=== PATIENT | female | born 1995 | race Caucasian/White ===

== ENCOUNTER → 2016-04-16 07:54 | Outpatient (CLI) | payer MEDICAID ==
[2016-01-02 04:43] VITALS: BMI 32.1
[~2016-04-16 07:54] MED LIST: HYDROCODON-ACE1 EAC7 PO; IBUPROFEN600 MG PO; PERCOCET 5-3251 TAB PO; PRENATAL COMPLE1 TAB PO; ZOLOFT50 MG PO
== END | disposition home or self-care (01) ==
LOC: D.US 07:54
DX: R10.11 Right upper quadrant pain (principal); K90.49 Malabsorption due to intolerance, not elsewhere classified

== ENCOUNTER 2016-05-06 07:11 | Day surgery (SDC) | payer MEDICAID ==
[2016-05-03 13:08] LABS: HEMATOCRIT 39.2 % (36.0-48.0); HEMOGLOBIN 13.3 g/dL (12-16); MCH 29.3 pg (26.0-34.0); MCHC 33.9 g/dL (31.0-37.0); MCV 86.3 fL (80.0-100.0); MEAN PLATELET VOLUME 12.3 fL (7.4-10.4); RBC 4.54 10x6/uL (4.00-5.40); RDW 12.5 % (11.5-14.5); WBC 5.1 10x3/uL (4.8-10.8)
[~2016-05-06] VITALS: Ht 172.7 cm; Wt 83.9 kg
[~2016-05-06 07:11] MED LIST changes: -HYDROCODON-ACE1 EAC7 PO
[2016-05-06 08:42] VITALS: BP 122/72; Ht 172.7 cm; Wt 83.9 kg
[2016-05-06 09:02] LABS: HCG URINE NEGATIVE (NEGATIVE)
--- NOTE | 2016-05-06 11:01 | NUR ---
CLIFFORD SN RELIEVED EWELINA FOR LUNCH AT 1100
--- NOTE | 2016-05-06 11:09 | NUR ---
JAQUI ST OUT AT 0098
[2016-05-06] MEDS ORDERED: HYDROCODON-ACE1 EAC7 PO (11:13)
--- NOTE | 2016-05-06 15:13 | NUR ---
1300--PT VOIDS, IV DC'D. DEANN RN 1320--DISCHARGE INSTRUCTIONS GIVEN, PT VERBALIZES UNDERSTANDING. PT OFF UNIT VIA WC. DEANN RICHARDSON
--- NOTE | 2016-05-06 22:48 | OP ---
PATIENT NAME: OVIDIO PICKERING MEDICAL RECORD: [id number] :89 LOCATION:[facility] ADMISSION DATE: SURGEON: WYATT CAZARES MD DATE OF OPERATION: 05/06/2016 SURGEON: Wyatt Cazarse MD. PREOPERATIVE DIAGNOSIS: 1. Symptomatic cholelithiasis. 2. Right upper quadrant pain. POSTOPERATIVE DIAGNOSES: 1. Symptomatic cholelithiasis. 2. Right upper quadrant pain. PROCEDURE PERFORMED: Laparoscopic cholecystectomy. ESTIMATED BLOOD LOSS: 20 cc. ANESTHESIA: General. COMPLICATIONS: None. SPECIMENS: Gallbladder. Case is clean contaminated. OPERATIVE COURSE: After consent was obtained, the patient was taken to the operating room and placed in the supine position on the operating table. Next, general anesthesia was given via endotracheal intubation after a timeout was performed that confirmed the correct patient and procedure. Thereafter, the abdomen was prepped and draped in typical sterile fashion. Local anesthetic was injected just above the umbilicus. A stab incision was made with an 11-blade scalpel. Using a 5-mm bladeless optical trocar, the abdomen was entered under direct laparoscopic vision. Adequate pneumoperitoneum was achieved. The abdominal cavity was inspected. No evidence of bowel injury. No evidence of bleeding. The patient was then placed in the steep reverse Trendelenburg position. All remaining trocars were then placed after the administration of local anesthetic, two 5-mm trocars in the right upper quadrant and 11-mm trocar in the subxiphoid position. The fundus of the gallbladder was grasped and retracted cephalad. The infundibulum was grasped and retracted laterally. The peritoneum was incised using electrocautery. Blunt dissection was performed with a [place] dissector until the critical view was obtained, cystic duct lateral, cystic artery medial. There was a posterior branch of the cystic artery that was also dissected. The liver was visible in the window. At this time, 3 clips were placed in the proximal cystic duct, 1 clip distal and 2 clips were placed in the proximal cystic artery. The duct and artery were then transected with laparoscopic Metzenbaum scissors. The remaining portion of the gallbladder was dissected off the liver bed using electrocautery. Once complete, it was grasped with the tenaculum and removed through the 11-mm trocar and sent for permanent pathology. Next, the surgical field was copiously irrigated and suctioned. Careful attention was paid to hemostasis, which was obtained in the liver bed using electrocautery. The operative site inspected. There were [address] in the cystic duct. There were [address] in the cystic artery. The abdominal cavity was inspected. There was no evidence OPERATIVE REPORT [id number] OVIDIO PICKERING of bowel injury. No evidence of bleeding, no evidence of bile leak. At this time, all remaining instruments were removed. The abdomen was desufflated. Trocars were removed. Skin was closed with 4-0 Monocryl, Mastisol and Steri-Strips. At the end of the case, all needle and instrument counts were correct. No complications occurred. The patient was extubated and transferred to the PACU in stable condition. TRANSINT:[id number] Voice Confirmation ID: [id number] DOCUMENT ID: [id number] WYATT CAZARES MD at 2248 CC: [id number] DICTATION DATE: 05/06/161116 [facility]: 05/06/16 [address] [facility] 05/06/16 [facility] [address] [place] [address]
== END 2016-05-06 13:20 | disposition home or self-care (01) ==
LOC: D.PAN 07:11 → D.OPS 09:30 → D.PAN 13:20
PROVIDERS: Anesthesiology; Surgery
DX: K80.10 Calculus of gallbladder with chronic cholecystitis without obstruction (principal)

== ENCOUNTER 2016-11-25 07:02 | Emergency (ER) | payer MEDICAID ==
[2016-05-06 08:42] VITALS: BMI 28.1
[~2016-11-25 07:02] MED LIST changes: +HYDROCODON-ACE1 EAC7 PO
[2016-11-25 08:54] LABS: BASOPHILS 0.2 % (0-2); EOSINOPHILS 0.5 % (0-7); HEMATOCRIT 37.2 % (36.0-48.0); HEMOGLOBIN 12.8 g/dL (12-16); IMMATURE GRANULOCYTES 0.3 % (0-5); LYMPHOCYTES 17.4 % (15-50); MCH 30.3 pg (26.0-34.0); MCHC 34.4 g/dL (31.0-37.0); MCV 87.9 fL (80.0-100.0); MEAN PLATELET VOLUME 10.8 fL (7.4-10.4); NEUTROPHILS 72.6 % (40-80); PLATELET COUNT 180 10x3/uL (130-400); RBC 4.23 10x6/uL (4.00-5.40); WBC 6.5 10x3/uL (4.8-10.8)
[2016-11-25 09:05] LABS: AMYLASE - SERUM 61 U/L (25-115); LIPASE 251 U/L (73-393)
== END 2016-11-25 10:03 | disposition home or self-care (01) ==
LOC: D.ER 07:02
PROVIDERS: Emergency Medicine
DX: R10.9 Unspecified abdominal pain (principal)

== ENCOUNTER → 2017-11-06 16:40 | Outpatient (CLI) | payer MEDICAID ==
[2016-05-06 08:42] VITALS: BMI 28.1
[2017-11-06 18:59] LABS: APPEARANCE CLEAR (CLEAR); BILIRUBIN NEGATIVE (NEGATIVE); COLOR YELLOW (YELLOW); GLUCOSE NEGATIVE (NEGATIVE); KETONE NEGATIVE (NEGATIVE); NITRITE NEGATIVE (NEGATIVE); PROTEIN TRACE mg/dL (NEGATIVE); SPECIFIC GRAVITY 1.015 (1.005-1.020); UROBILINOGEN NORMAL (NORMAL)
[2017-11-06 19:01] LABS: BACTERIA FEW /hpf (NONE SEEN); EPITHELIAL CELLS 0-5 /hpf (0-5); WHITE CELLS - URINE OCC /hpf (0-5)
== END | disposition home or self-care (01) ==
LOC: D.LDO 16:40
PROVIDERS: Obstetrics & Gynecology
DX: O26.893 Other specified pregnancy related conditions, third trimester (principal); Z3A.37 37 weeks gestation of pregnancy; R10.9 Unspecified abdominal pain; R19.7 Diarrhea, unspecified

== ENCOUNTER → 2017-11-10 14:52 | Outpatient (CLI) | payer MEDICAID ==
[2016-05-06 08:42] VITALS: BMI 28.1
== END | disposition home or self-care (01) ==
LOC: D.LDO 14:52
DX: O36.8130 Decreased fetal movements, third trimester, not applicable or unspecified (principal); Z3A.37 37 weeks gestation of pregnancy

== ENCOUNTER → 2017-11-13 13:53 | Outpatient (CLI) | payer MEDICAID ==
[2016-05-06 08:42] VITALS: BMI 28.1
== END | disposition home or self-care (01) ==
LOC: D.LDO 13:53
DX: O36.8130 Decreased fetal movements, third trimester, not applicable or unspecified (principal); Z3A.38 38 weeks gestation of pregnancy

== ENCOUNTER 2017-11-18 10:16 | Inpatient (IN) | payer MEDICAID ==
[~2017-11-18] VITALS: Ht 172.7 cm; Wt 99.8 kg
[2017-11-18] VITALS (14 sets, daily range): BP systolic 97–121; BP diastolic 55–88; Ht 172.7 cm; Wt 99.8 kg
[2017-11-18] MEDS ORDERED: ZOLOFT50 MG PO (10:42)
[2017-11-18] MEDS ORDERED: OMEPRAZOLE CAP 20M (10:43)
[2017-11-18] MEDS ORDERED: VISTARIL50 MG PO (10:43)
[2017-11-18 11:22] LABS: HEMATOCRIT 34.9 % (36.0-48.0); MCH 30.6 pg (26.0-34.0); MCHC 34.4 g/dL (31.0-37.0); RBC 3.92 10x6/uL (4.00-5.40); WBC 6.5 10x3/uL (4.8-10.8)
[2017-11-19 03:09] VITALS: BP 105/58
[2017-11-19 07:30] VITALS: BP 93/52
[2017-11-19 07:42] LABS: HEMATOCRIT 34.1 % (36.0-48.0); HEMOGLOBIN 11.6 g/dL (12-16); MCH 30.1 pg (26.0-34.0); MCV 88.6 fL (80.0-100.0); RBC 3.85 10x6/uL (4.00-5.40); RDW 12.8 % (11.5-14.5)
[2017-11-19 09:00] VITALS: BP 102/56
[2017-11-19 17:13] VITALS: BP 109/53
[2017-11-19 19:12] VITALS: BP 112/56
[2017-11-20 01:11] VITALS: BP 100/56
[2017-11-20 04:25] VITALS: BP 95/59
[2017-11-20 07:59] LABS: RAPID PLASMA REAGIN Non Reactive (Non Reactive)
[2017-11-20 08:25] VITALS: BP 121/69
== END 2017-11-20 11:30 | disposition home or self-care (01) | DRG 766 ==
LOC: D.LD 10:16
PROVIDERS: Obstetrics & Gynecology
PROC: 10D00Z1 Extraction of Products of Conception, Low, Open Approach (ICD-10-PCS; principal; 2017-11-18 12:30)
PROC: 0UB70ZZ Excision of Bilateral Fallopian Tubes, Open Approach (ICD-10-PCS; 2017-11-18 12:30)
DX: O34.211 Maternal care for low transverse scar from previous cesarean delivery (principal); Z30.2 Encounter for sterilization; Z3A.38 38 weeks gestation of pregnancy; Z37.0 Single live birth; Z30.09 Encounter for other general counseling and advice on contraception

== ENCOUNTER 2019-10-19 11:38 | Inpatient (IN) | payer MEDICAID ==
[~2019-10-19] VITALS: Ht 172.7 cm; Wt 88.2 kg
[~2019-10-19 11:38] MED LIST changes: +OMEPRAZOLE CAP 20M; +VISTARIL50 MG PO
[2019-10-19] MEDS ORDERED: PROZAC40 MG (11:48)
[2019-10-19 12:34] LABS: BASOPHILS 0.1 % (0-2); EOSINOPHILS 0.9 % (0-7); HEMATOCRIT 39.3 % (36.0-48.0); HEMOGLOBIN 13.2 g/dL (12-16); IMMATURE GRANULOCYTES 0.1 % (0-5); LYMPHOCYTES 5.2 % (15-50); MCH 30.6 pg (26.0-34.0); MCHC 33.6 g/dL (31.0-37.0); MEAN PLATELET VOLUME 10.9 fL (7.4-10.4); MONOCYTES 7.6 % (2-11); NEUTROPHILS 86.1 % (40-80); RBC 4.32 10x6/uL (4.00-5.40); RDW 11.8 % (11.5-14.5); WBC 9.2 10x3/uL (4.8-10.8)
[2019-10-19 12:38] LABS: PLATELET COUNT 177 10x3/uL (130-400)
[2019-10-19 12:42] LABS: CALC OSMOLALITY 269 mosm/kg (275-300); CALCIUM 8.2 mg/dL (8.5-10.1); CARBON DIOXIDE 25.8 mmol/L (21.0-32.0); CHLORIDE - SERUM 103 mmol/L (98-107); CREATININE - SERUM 0.7 mg/dL (0.6-1.3); GLUCOSE 113 mg/dL (74-106); POTASSIUM - SERUM 3.6 mmol/L (3.5-5.1); SODIUM 135 mmol/L (136-145); UREA NITROGEN 10 mg/dL (7-18); eGFR NON AFRICAN AMERICAN > 90 mL/min (90-120)
[2019-10-19 12:49] LABS: APTT 26.9 SECONDS (22.8-39.4); INR 1.01 (0.85-1.17); PROTIME 13.2 SECONDS (11.6-15.0)
[2019-10-19 12:50] LABS: D-DIMER-QUANTITATIVE 0.39 ug/mLFEU (0.20-0.54)
[2019-10-19 12:58] LABS: ALKALINE PHOSPHATASE 75 U/L (30-120); ALT (SGPT) 18 U/L (10-68); BILIRUBIN - TOTAL 0.57 mg/dL (0.2-1.3); CKMB 0.3 U/L (0.0-3.6); CREATINE KINASE 45 UL (21-215); PRO BNP 39 pg/mL (0-125); PROTEIN - SERUM 7.4 g/dL (6.4-8.2); TROPONIN-I < 0.017 ng/mL (0.000-0.060)
[2019-10-19 15:00] VITALS: BP 104/58
--- NOTE | 2019-10-19 15:00 | NUR ---
ASSUMED CARE OF PT AT HTIS TIME.
--- NOTE | 2019-10-19 17:33 | NUR ---
RECEIVED REPORT FROM GEOFF IN ED. PATIENT TO UNIT SOON.
[2019-10-19] MEDS ORDERED: TRAZODONE HCL150 MG PO (18:22)
--- NOTE | 2019-10-19 19:10 | NUR ---
PT DENIES NEEDS BED LOW AND LOCKED CALL LIGHT IS WITH PT PT TESTED NEG FOR COVID BUT I AM CONTINUING TO USE PPE AT THIS TIME THERE IS NO OTHER EXPLANATION FOR HER RESP DISTRESS
[2019-10-20 06:12] VITALS: Ht 172.7 cm; Wt 88.2 kg
[2019-10-20 06:16] LABS: BASOPHILS 0 % (0-2); EOSINOPHILS 1.7 % (0-7); HEMATOCRIT 36.1 % (36.0-48.0); HEMOGLOBIN 11.8 g/dL (12-16); IMMATURE GRANULOCYTES 0.3 % (0-5); LYMPHOCYTES 9.1 % (15-50); MCHC 32.7 g/dL (31.0-37.0); MCV 91.9 fL (80.0-100.0); MEAN PLATELET VOLUME 11.5 fL (7.4-10.4); MONOCYTES 7.5 % (2-11); NEUTROPHILS 81.4 % (40-80); PLATELET COUNT 180 10x3/uL (130-400); RBC 3.93 10x6/uL (4.00-5.40); WBC 7.6 10x3/uL (4.8-10.8)
[2019-10-20 07:09] LABS: CALC OSMOLALITY 279 mosm/kg (275-300); CALCIUM 7.6 mg/dL (8.5-10.1); CHLORIDE - SERUM 110 mmol/L (98-107); CREATININE - SERUM 0.6 mg/dL (0.6-1.3); GLUCOSE 127 mg/dL (74-106); POTASSIUM - SERUM 3.8 mmol/L (3.5-5.1); SODIUM 140 mmol/L (136-145); UREA NITROGEN 9 mg/dL (7-18); eGFR NON AFRICAN AMERICAN > 90 mL/min (90-120)
[2019-10-20 07:59] VITALS: BP 112/62
--- NOTE | 2019-10-20 08:06 | NUR ---
O2 SAT 100% 7L SIMPLE MASK. PT WEANED TO 4L ON SIMPLE MASK AND O2 SAT 98%. CHANGED O2 TO HIGH FLOW NC ON 4L AND O2 SAT STAYING 96%-98%. PT ALERT AND ORIENTED. COVID RETEST SWAB DONE. PT TOLERATED WELL. RIGHT FA 22G IV INFUSING NS AT 125ML/HR. PT UB ADLIB. BED LOW. CL IN REACH. WILL CONTINUE WITH POC.
--- NOTE | 2019-10-20 08:11 | HP ---
PATIENT: OVIDIO MCCALL MEDICAL RECORD: [id number] ACCOUNT: [id number] LOCATION:[address] : [birth year] ADMISSION DATE: 10/19/19 PCP: MO REAGAN MD HISTORY AND PHYSICAL EXAMINATION REASON FOR ADMISSION: Shortness of breath and nausea. HISTORY OF PRESENT ILLNESS: The patient is a 23-year-old 2 female. No previous respiratory illness. She states that she felt well until yesterday. She felt horrible, felt achy, and developed nausea. She vomited once yesterday and again today. She notes that she has felt like there is pressure in her chest. She was not breathing well. She had no sputum production or fever. She had no Covid exposure. The patient came to the ED and apparently oxygen saturations were 90% on room air. She was placed on 4 liters to correct to 95%. She is mildly tachycardic as well as mildly hypotensive on admission. She denies hemoptysis. Denies leg swelling or edema. No past history of family history of venous clots or coagulopathy. Emergency room physician checked her for flu and strep, which were negative. Covid nasal swab was drawn and resulted after she was admitted. It is negative. She still feels like she has difficulty breathing and is nauseated. PAST MEDICAL HISTORY: Chronic depression, severe with suicidal thoughts, but no attempts. Insomnia and history of hyperemesis gravidarum. PAST SURGICAL HISTORY: She has had a cholecystectomy, bilateral salpingectomy for sterilization and times 2. FAMILY HISTORY: Mother with hypertension, obesity, and depression. SOCIAL HISTORY: He is , has 2 sons living at home and marriage is good. She does not use alcohol or smoke cigarettes or marijuana. 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 REVIEW OF SYSTEMS: CONSTITUTIONAL: Fatigued and nauseated for the last 24 hours with sensation of shortness of breath. HEENT: No recent visual change, sinus congestion, sore throat, or hearing difficulty. RESPIRATORY: Shortness of breath at rest and exertion, felt like something pressing on her chest. She has had no cough, sputum production, or hemoptysis. CARDIAC: No exertional chest pain. GASTROINTESTINAL: Nausea with vomiting twice. No change in stools or blood per rectum. She had hyperemesis gravidarum when , but no recent GI symptoms. ENDOCRINE: Denies polyuria, polydipsia, heat, or cold intolerance. NEUROLOGIC: No history of stroke, TIA, vascular headaches, or seizures. PSYCHIATRIC: Admits to chronic depressed mood better on high dose Prozac. INTEGUMENT: No rash or itching. MUSCULOSKELETAL: No arthralgias. GYNECOLOGICAL: 2. Normal menstrual periods, but it status post-salpingectomy bilaterally electively. PHYSICAL EXAMINATION: VITAL SIGNS: Temperature 97.5, pulse 106, O2 sat is 95% on 4 liters, was 90% on room air, blood pressure 129/75. HISTORY AND PHYSICAL [id number] CALOVIDIOChrissy FARNSWORTH GENERAL: The patient is alert and oriented, in no acute distress. HEENT: Her eyes are clear. Oropharynx unremarkable. NECK: Supple. CHEST: No wheeze or rales. HEART: Regular rate and rhythm without murmur. BREASTS: Symmetrical. ABDOMEN: Soft, nontender. EXTREMITIES: No CC and E. NEUROLOGICAL: Grossly intact. Gait not tested. Motor and sensory intact. PSYCHIATRIC: Admits to stable depression, nonsuicidal. LABORATORY DATA: Shows white count of 9200, H and H of 13 and 39. Slightly left shift with neutrophils of 98.6. Chemistry: Sodium 135 and potassium is normal. Cardiac enzymes are negative. Glucose is 113 nonfasting. Lactic acid is 0.8. C-reactive protein is 4. ProBNP is 39. ABG on room air showed a pH of 7.4, pO2 of 68, pCO2 of 35, and sat 94%. Flu A and B are negative. SARS-CoV-2 is negative. Group A strep is negative. HOME MEDICATIONS: Prozac 60 mg a day and trazodone 100 mg at bedtime. ALLERGIES: None. ASSESSMENT: 1. Shortness of breath with hypoxemia, etiology unknown. She denies fever to me, but generalized aches have been noted. No loss of sense of taste or smell. 2. Negative Covid 19. 3. History of depression. PLAN: Review EKG done in the ED. We will check a D-dimer. If elevated, check pulmonary CTA. Etiology of her hypoxemia currently is unknown. She again denies fever or productive cough. Repeat x-ray in the morning if CTA not performed. The ED has consulted pulmonary due to possible Covid 19, which is currently negative. TRANSINT:[id number] Voice Confirmation ID: [id number] DOCUMENT ID: [id number] MO REAGAN MD at 0811 CC: [id number] DICTATION DATE: 10/19/191805 RESEARCH PROFESSOR OF BIOSTATISTICS: 10/19/19 2253 ADM IN [place] [id number] [place] [address]
--- NOTE | 2019-10-20 11:00 | NUR ---
PT NOW ON 2L HIGH FLOW NC PER R.T.
--- NOTE | 2019-10-20 11:38 | NUR ---
COVID TEST NEGATIVE.
--- NOTE | 2019-10-20 15:02 | NUR ---
I have reviewed this patient and I concur with the Shift Assessment completed by the Licensed Practical Nurse today this shift.
--- NOTE | 2019-10-20 16:26 | NUR ---
DR. REAGAN CALLED TO CHECK ON PT. I STATED TO HIM PT IS ON ROOM AIR AND COVID TEST IS NEGATIVE AND THAT PT IS STILL C/O OF NAUSEA AND IS RECEIVING ZOFRAN IV. I ALSO STATED TO HIM PT STATES SHE WANTS TO BE DISCHARGED BUT SHE IS NOT FEELING BETTER. DR. REAGAN STATES TO IF PT IS RECEVING ZOFRAN SHE CAN NOT GO HOME. HE THEN ASKED IF DR. HAWKINS HAS SEEN PT AND IF ECHO HAS RESULTED. I STATED TO HIM DR. SCHAEFFER CAME THROUGH HERE BUT I DID NOT SPEAK WITH HIM AND HE HAS NO PUT IN A NOTE YET AND THE ECHO RESULTS ARE NOT IN THE COMPUTER YET. HE VERBALIZED UNDERSTANDING AND STATES PT WILL NOT GO HOME TODAY. I VERBLIZED UNDERSTANDING.
[2019-10-20 17:10] VITALS: BP 103/61
--- NOTE | 2019-10-20 19:00 | NUR ---
REPORT RECEIVED, WILL CONTINUE POC. PATIENT IS AAOX4, LYING ON LEFT SIDE. NO S/S OF DISTRESS OBSERVED, RR EVEN AND UNLABORED ON ROOM AIR. PATIENT DENIES NEEDS AT THIS TIME. CL IN REACH, BED LOCKED AND LOWERED. SIGNIFICANT OTHER AT BEDSIDE. WILL CTM.
--- NOTE | 2019-10-20 19:30 | NUR ---
DR. SCHAEFFER AT BEDSIDE.
[2019-10-20 19:37] VITALS: BP 115/75
[2019-10-21 04:00] VITALS: BP 100/60
[2019-10-21 07:08] LABS: BASOPHILS 0 % (0-2); EOSINOPHILS 1.5 % (0-7); HEMATOCRIT 34.4 % (36.0-48.0); HEMOGLOBIN 11.2 g/dL (12-16); IMMATURE GRANULOCYTES 0.2 % (0-5); LYMPHOCYTES 16.5 % (15-50); MCHC 32.6 g/dL (31.0-37.0); MCV 92.2 fL (80.0-100.0); MEAN PLATELET VOLUME 10.9 fL (7.4-10.4); MONOCYTES 11.3 % (2-11); NEUTROPHILS 70.5 % (40-80); RBC 3.73 10x6/uL (4.00-5.40); RDW 12.2 % (11.5-14.5); WBC 5.8 10x3/uL (4.8-10.8)
[2019-10-21 07:12] LABS: CALC OSMOLALITY 282 mosm/kg (275-300); CALCIUM 7.5 mg/dL (8.5-10.1); CARBON DIOXIDE 26.6 mmol/L (21.0-32.0); CHLORIDE - SERUM 110 mmol/L (98-107); CREATININE - SERUM 0.7 mg/dL (0.6-1.3); GLUCOSE 100 mg/dL (74-106); POTASSIUM - SERUM 3.5 mmol/L (3.5-5.1); SODIUM 143 mmol/L (136-145); UREA NITROGEN 7 mg/dL (7-18); eGFR NON AFRICAN AMERICAN > 90 mL/min (90-120)
[2019-10-21 07:15] LABS: PLATELET COUNT 143 10x3/uL (130-400)
[2019-10-21 08:10] VITALS: BP 100/50
[2019-10-21 12:00] VITALS: BP 94/54
[2019-10-21] MEDS ORDERED: ZOFRAN4 MG PO (12:47)
[2019-10-21] MEDS ORDERED: IBUPROFEN400 MG PO (13:39)
--- NOTE | 2019-10-21 14:26 | MORECARE ---
CASE MANAGEMENT DISCHARGE SUMMARY PATIENT: OVIDIO MCCALL UNIT: [id number] ADM DATE: 10/19/19 AGE: 23 : 93 SEX: F ROOM/BED: D.4053 AUTHOR: JOANNA PHILLIPS PHYSICIAN: REFERRING PHYSICIAN: MO BLANDON MD DATE OF SERVICE: 10/21/19 Discharge Plan Patient Name: OVIDIO MCCALL Facility: [facility]:[place] : 1995 Planned Disposition: Home Anticipated Discharge Date: 10/21/19 Discharge Date: Expected LOS: 2 Initial Reviewer: [email or web address] Initial Review Date: 10/19/2019 Generated: 10/21/19 3:25 pm Comments DCP- Discharge Planning Updated by [email or web address]: Kaylee Kaufman on 10/21/19 1:[address] CM contacted patient via phone, regarding DC needs/plans. Patient is in agreement to same. Patient lives with her , Quoc Mccall, [phone]. Patient is independent with her care BELL STAFF. PCP: Dr. Blandon. Pharmacy: [facility]. DME: None. CM discussed HHS with patient and she declines at this time. Encouraged patient and spouse to contact her MD or go to the ER id symptoms worsen. Patient voices understanding. Quoc will drive patient home and olive picker any medications. Patient Name: OVIDIO MCCALL Page [phone] at 1426 All edits/amendments must be made on the electronic document DICTATION DATE: 10/21/19 1425 TECH INTERN: TIMOTEO 10/21/19 1425 RPT#: [id number] DC DATE: STATUS: ADM IN [facility] [address] [place] [address] END OF REPORT
--- NOTE | 2019-10-21 14:34 | MORECARE ---
CASE MANAGEMENT DISCHARGE SUMMARY PATIENT: OVIDIO MCCALL UNIT: [id number] ADM DATE: 10/19/19 AGE: 23 : [birth year] SEX: F ROOM/BED: D.5624 AUTHOR: JOANNA PHILLIPS PHYSICIAN: REFERRING PHYSICIAN: MO BLANDON MD DATE OF SERVICE: 10/21/19 Discharge Plan Patient Name: OVIDIO MCCALL Facility: [facility]:[place] : 1995 Planned Disposition: Home Anticipated Discharge Date: 10/21/19 Discharge Date: Expected LOS: 2 Initial Reviewer: [email or web address] Initial Review Date: 10/19/2019 Generated: 10/21/19 3:34 pm Comments DCP- Discharge Planning Updated by [email or web address]: Kaylee Kaufman on 10/21/19 1:[address] CM contacted patient via phone, regarding DC needs/plans. Patient is in agreement to same. Patient lives with her , Quoc Mccall, [phone]. 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 PCP: Dr. Blandon. Pharmacy: [facility]. DME: None. CM discussed HHS with patient and she declines at this time. Encouraged patient and spouse to contact her MD or go to the ER id symptoms worsen. Patient voices understanding. Quoc will drive patient home and brick picker any medications. Last DP export: 10/21/19 1:25 p Patient Name: OVIDIO MCCALL Page [phone] at 1434 All edits/amendments must be made on the electronic document DICTATION DATE: 10/21/19 1434 SLAG DUMPER: TIMOTEO 10/21/19 1434 RPT#: [id number] DC DATE: STATUS: ADM IN [facility] [address] [place] [address] END OF REPORT
--- NOTE | 2019-10-21 15:03 | NUR ---
HERE TO EMPLOYEE BENEFITS SPECIALIST PT. IV REMOVED, INSTRUCTIONS REVIEWED AND SIGNED. SCRIPT CALLED TO STEVE DUONG ON [address].
--- NOTE | 2019-10-23 10:01 | MORECARE ---
CASE MANAGEMENT DISCHARGE SUMMARY PATIENT: OVIDIO MCCALL UNIT: [id number] ADM DATE: 10/19/19 AGE: 23 : [birth year] SEX: F ROOM/BED: D.3792 AUTHOR: JOANNA PHILLIPS PHYSICIAN: REFERRING PHYSICIAN: MO BLANDON MD DATE OF SERVICE: 10/23/19 Discharge Plan Patient Name: OVIDIO MCCALL Facility: [facility]:[place] : 1995 Planned Disposition: Home Anticipated Discharge Date: 10/21/19 Discharge Date: 10/21/2019 Expected LOS: 2 Initial Reviewer: [email or web address] Initial Review Date: 10/19/2019 Generated: 10/23/19 11:00 am Comments DCP- Discharge Planning Updated by [email or web address]: Kaylee Kaufman on 10/21/19 1:[address] CM contacted patient via phone, regarding DC needs/plans. Patient is in agreement to same. Patient lives with her , Quoc Mccall, [phone]. 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 PCP: Dr. Blandon. Pharmacy: [facility]. DME: None. CM discussed HHS with patient and she declines at this time. Encouraged patient and spouse to contact her MD or go to the ER id symptoms worsen. Patient voices understanding. Quoc will drive patient home and belt picker any medications. Last DP export: 10/21/19 1:34 p Patient Name: OVIDIO MCCALL Page [phone] at 1001 All edits/amendments must be made on the electronic document DICTATION DATE: 10/23/19 1000 CUSTOMER CARE ASSISTANT: DM 10/23/19 1000 RPT#: [id number] DC DATE:10/21/19 STATUS: DIS IN [facility] [address] [place] [address] END OF REPORT
== END 2019-10-21 15:04 | disposition home or self-care (01) | DRG 864 ==
LOC: D.ER 11:38 → D.M2 17:26
PROVIDERS: Family Medicine; ADMIT Family Medicine; ATTEND Family Medicine
DX: R50.9 Fever, unspecified (principal); R07.9 Chest pain, unspecified; R00.0 Tachycardia, unspecified; F32.9 Major depressive disorder, single episode, unspecified; R09.02 Hypoxemia; R11.2 Nausea with vomiting, unspecified